=== PATIENT | male | born 1995 | race African-American/Black ===

== ENCOUNTER 2016-08-27 15:16 | Emergency (ER) | payer SELFPAY ==
[~2016-08-27] VITALS: Ht 180.3 cm; Wt 68.0 kg
--- NOTE | 2016-08-27 15:41 | Emergency Room Report ---
History of Present Illness General Chief Complaint: Earache Source: Patient Present Illness HPI 21-year-old male presents emergency department complaining of left ear pain 10 out of 10 in severity x3 days. Patient also reports purulent/bloody discharge. Patient admits to Q-tip use. Patient states he had foreign body sensation with itching so he utilized a Q-tip rigorously and had a sharp pain as he believes he may have put the Q-tip too far. And has had pain since with decreased hearing on the left ear and onset of discharge. She denies fevers or chills patient denies swollen tender lymph nodes patient denies recent upper respiratory illness patient denies history of immunocompromise. Denies CP, Palpitations, LOC, AMS, dizziness, Changes in Vision, Sensation, paresthesias, or a sudden severe headache. Allergies: Coded Allergies: No Known Allergies (Unverified , 08/27/16) Patient History Past Medical History: see triage record Past Surgical History: none Pertinent Family History: none Immunizations: UTD Reviewed Nursing Documentation: PMH: Agreed, PSxH: Agreed Nursing Documentation-PMH Past Medical History: No Stated History Review of Systems All Other Systems: negative except mentioned in HPI Physical Exam Vital Signs Date Time Temp Pulse Resp B/P Pulse Ox O2 Delivery O2 Flow Rate FiO2 08/27/16 15:23 97.3 79 15 130/87 100 Room Air Sp02 EP Interpretation: reviewed, normal General Appearance: no apparent distress, alert, GCS 15, non-toxic Head: normocephalic, atraumatic Eyes: bilateral eye PERRL, bilateral eye normal inspection ENT: hearing grossly normal, normal pharynx, no angioedema, normal voice, uvula midline, moist mucus membranes, other - Left ear canal is erythematous and macerated in appearance with Bloody/purulent d/c noted and some areas of white d/c noted. TM involvement, no evidence of mastoiditis or preauricular LAD on PE. Right Ear canal and TM are WNL. Neck: full range of motion, supple/symm/no masses Respiratory: lungs clear, normal breath sounds, speaking full sentences Cardiovascular #1: regular rate, rhythm, normal capillary refill Musculoskeletal: normal inspection, gait/station normal, normal range of motion , non-tender Neurologic: alert, oriented x3, responsive, motor strength/tone normal, sensory intact, speech normal Psychiatric: judgement/insight normal, memory normal, mood/affect normal Skin: normal color, no rash, warm/dry, well hydrated Lymphatic: no adenopathy Medical Decision Making PA Attestation Dr. Salcedo is my supervising Physician whom patient management has been discussed with. Diagnostic Impression: Primary Impression: Otitis externa of left ear Qualified Codes: H60.392 - Other infective otitis externa, left ear Additional Impression: Traumatic rupture of tympanic membrane Qualified Codes: S09.22XA - Traumatic rupture of left ear drum, initial encounter ER Course 21-year-old male presents emergency department complaining of left ear pain 10 out of 10 in severity x3 days. Patient also reports purulent/bloody discharge. Patient admits to Q-tip use. Patient states he had foreign body sensation with itching so he utilized a Q-tip rigorously and had a sharp pain as he believes he may have put the Q-tip too far. And has had pain since with decreased hearing on the left ear and onset of discharge. he denies fevers or chills patient denies swollen tender lymph nodes patient denies recent upper respiratory illness patient denies history of immunocompromise. Ddx considered but are not limited to OM, OE, mastoiditis, TM perforation, FB Vital signs: are WNL, pt. is afebrile H&PE are most consistent with otitis externa and TM traumatic perforation secondary to Q-Tip use. ORDERS: none required at this time, the diagnosis is clinical -OTOSCOPY: Left ear canal is erythematous and macerated in appearance with Bloody/purulent d/c noted and some areas of white d/c noted. TM involvement, no evidence of mastoiditis or preauricular LAD on PE. Right Ear canal and TM are WNL. ED INTERVENTIONS: None required at this time. -- pt education, : d/c q-tip use. and follow up with ENT. DISCHARGE: At this time pt. is stable for d/c to home. With Otic ABX. Will provide printed patient care instructions, and any necessary prescriptions. Care plan and follow up instructions have been discussed with the patient prior to discharge. Last Vital Signs Date Time Temp Pulse Resp B/P Pulse Ox O2 Delivery O2 Flow Rate FiO2 08/27/16 15:23 97.3 79 15 130/87 100 Room Air Disposition: HOME, SELF-CARE Condition: Stable Scripts Acetaminophen* (TYLENOL EXTRA STRENGTH*) 500 Mg Tablet 500 MG ORAL Q6H, #20 TAB 0 Refills Prov: Priyanka Porter 08/27/16 Ciprofloxacin/Hydrocortisone (CIPRO HC OTIC SUSPENSION) 10 Ml Drops.susp 10 DROP OT BID for 7 Days, #10 ML Prov: Priyanka Porter 08/27/16 Patient Instructions: Otitis Externa, [id number], Eardrum Perforation, Easy- to-Read Additional Instructions: Take medications as directed. Follow up with PCP in 3-5 days.. ENT follow up is suggested. *!* Review provided list of free or reduced cost health clinics for follow up * !* Return sooner to ED if new symptoms occur, or current symptoms become worse. - Please note that this Emergency Department Report was dictated using [employer] Corporationdirector of health education technology software, occasionally this can lead to erroneous entry secondary to interpretation by the dictation equipment. Priyanka Porter Aug 27, 2016 15:41
[2016-08-27] MEDS ORDERED: TYLENOL EXTRA500 MG ORAL (15:44)
[2016-08-27] MEDS ORDERED: CIPRO HC OTIC S10 M1 OT (15:44)
[2016-08-27 16:06] VITALS: BP 126/76
== END 2016-08-27 16:08 | disposition home or self-care (01) ==
LOC: EMR 15:44
DX: H60.92 Unspecified otitis externa, left ear (principal); S09.22XA Traumatic rupture of left ear drum, initial encounter; X58.XXXA Exposure to other specified factors, initial encounter; Y92.009 Unspecified place in unspecified non-institutional (private) residence as the place of occurrence of the external cause
CPT/HCPCS: 99284